=== PATIENT | male | born 1975 | race Two or more races ===

== ENCOUNTER 2024-03-11 23:21 | Emergency (ER) | payer MEDICAID, OTHER ==
[~2024-03-11] VITALS: Ht 185.4 cm; Wt 90.9 kg
--- NOTE | 2024-03-11 23:53 | ED.PDOC ---
Musculoskeletal HPI Comments 48 Year old male came to emergency room via EMS due to left knee pain. Patient appears to be homeless, walking towards the gas station where he tripped and fell badly on his left knee. Patient denies any other injuries. Patient states he has a history of a torn meniscus, but states that he lost his knee brace and crutches due to his daughter's car being repossessed. Chief Complaint: Lower Extremity Time Seen by MD: 23:53 Reviewed Notes: Nurses Notes, Family Program Specialist Notes Allergies: Coded Allergies: NO KNOWN ALLERGIES (Unverified , 03/11/24) Information Source: Patient, Emergency Med Personnel Mode of Arrival: EMS Location: Left Extremity Location: Knee Timing: Hours Prehospital treatment: None Severity: Moderate Able to Move Extremity: Yes Bear Weight: Limited Pain: Moderate Hand Dominance: Right Mechanism: Blunt Trauma Circumstances: Fall Onset of Symptoms: After Trauma Symptoms: Swelling, Pain Associated signs and symptoms: Knee pain (left) Past Medical History PAST MEDICAL HISTORY: Denies Past Medical History (Other): History of left knee meniscus tear Surgical History: Denies all surgeries Family History Family History: Reviewed,noncontributory to illness Social History Smoker: Non-Smoker Alcohol: Denies ETOH Use Drugs: Denies Drug Use Lives In: Home Constitutional: denies: chills, diaphoresis, fatigue, fever, malaise, sweats, weakness, others EENTM: denies: blurred vision, double vision, ear bleeding, ear discharge, ear drainage, ear pain, ear ringing, eye pain, eye redness, hearing loss, mouth pain, mouth swelling, nasal discharge, nose bleeding, nose congestion, nose pain, photophobia, tearing, throat pain, throat swelling, voice changes, others Respiratory: denies: cough, hemoptysis, orthopnea, SOB at rest, shortness of breath, SOB with excertion, stridor, wheezing, others Cardiovascular: denies: chest pain, dizzy spells, diaphoresis, Dyspnea on exer tion, edema, irregular heart beat, left arm pain, lightheadedness, palpitations, PND, syncope, others Gastrointestinal: denies: abdomen distended, abdominal pain, blood streaked bowels, constipated, diarrhea, dysphagia, difficulty swallowing, hematemesis, melena, nausea, poor appetite, poor fluid intake, rectal bleeding, rectal pain, vomiting, others Genitourinary: denies: burning, dysuria, flank pain, frequency, hematuria, incontinence, penile discharge, penile sore, pain, testicle pain, testicle swelling, urgency, others Neurological: denies: dizziness, fainting, headache, left sided numbness, left sided weakness, numbness, paresthesia, pre-existing deficit, right sided numbness, right sided weakness, seizure, speech problems, tingling, tremors, weakness, others Musculoskeletal: reports: joint pain (Left knee); denies: back pain, gout, joint swelling, muscle pain, muscle stiffness, neck pain, others Integumetry: denies: bruises, change in color, change in hair/nails, dryness, laceration, lesions, lumps, rash, wounds, others Allergic/Immunocompromised: denies: Difficulty Healing, Frequent Infections, Hives, Itching, others Hematologic/Lymphatic: denies: anemia, blood clots, easy bleeding, easy bruising, swollen glands, others Endocrine: denies: excessive hunger, excessive sweating, excessive thirst, excessive urination, flushing, intolerance to cold, intolerance to heat, unexplained weight gain, unexplained weight loss, others Psychiatric: denies: anxiety, bipolar disorder, depression, hopeless, panic disorder, schizophrenia, sleepless, suicidal, others Physical Exam General Appearance: Moderate Distress (Moderate distress due to left knee pain concerns.), Normal HEENT: Normal ENT Inspection, Pharynx Normal, TMs Normal Neck: Full Range of Motion, Non-Tender, Normal, Normal Inspection Respiratory: Chest Non-Tender, Lungs Clear, No Accessory Muscle Use, No Respiratory Distress, Normal Breath Sounds Cardiovascular: No Edema, No JVD, No Murmur, No Gallop, Normal Peripheral Pulses, Regular Rate/Rhythm Breast Exam: Deferred Gastrointestinal: No Organomegaly, Non Tender, No Pulsatile Mass, Normal Bowel Sounds, Soft Genitalia: Deferred Pelvic: Deferred Rectal: Deferred Extremities: Other (Diffuse tenderness to palpation throughout the anterior and medial aspect of the left knee. Mild edema noted. No ecchymosis noted. Significant reduced range of motion. Distal neurovascular intact.) Musculoskeletal : Apperance: Normal Neurologic: Alert, No Motor Deficits, Normal Affect, Normal Mood, No Sensory Deficits Cerebellar Function: Normal Reflexes: Normal Skin: Dry, Normal Color, Warm Lymphatic: No Adenopathy Was a procedure done? Was a procedure done?: No Differential Diagnosis EXT Differential Diagnosis: Fracture, Sprain, Dislocation, Strain X-Ray, Labs, Meds, VS Vital Signs Date Time Temp Pulse Resp B/P (MAP) Pulse Ox O2 Delivery O2 Flow Rate FiO2 03/11/24 23:25 97.8 62 18 140/89 (106) 100 XY L KNEE 3V XRAY, INDICATION: Fall/trauma TECHNICAL DATA: Frontal , oblique and lateral views were obtained of the left knee. COMPARISON: None FINDINGS: No fracture is identified. Medial, lateral and patellofemoral compartment joint spaces are maintained. Alignment is anatomic. Soft tissues are within normal limits. No joint effusion is demonstrated. IMPRESSION: No acute fracture or dislocation of the left knee. X-Ray, Labs, Meds, VS Comment All studies performed the ED today were reviewed by me personally. Imaging studies were unremarkable for any acute fractures. Patient sustained a left knee contusion. Advised patient utilize Thaddeus wrap and crutches as needed. Pain medication as needed. Ice therapy as tolerated. Time of 1ST Reevaluation: 00:22 Reevaluation 1ST: Improved Consultation: PCP Patient Education/Counseling: Diagnosis, Treatment Family Education/Counseling: Diagnosis, Treatment, No Family Present Departure 1 Departure Time of Disposition: 00:22 Impression: Primary Impression: Contusion of left knee Disposition: 01 HOME / SELF CARE / HOMELESS Condition: Stable Additional Instructions: Advise utilizing Thaddeus wrap and crutches as long as it aid in the healing process. Pain medication as needed. Ice therapy has been advised. e-Prescriptions Tramadol Hcl (Tramadol Hcl) 50 Mg Tab 50 MG PO Q8HP PRN, #15 TAB Prov: DEMOND HALL PAC 03/12/24 Ibuprofen Micronized (Ibuprofen) 800 Mg Tab 800 MG PO Q8HP PRN, #20 TAB Prov: DEMOND HALL PAC 03/12/24 Discharged With: Self Critical Care Note Critical Care Time?: No Stability Stability form required: No Heart Score Heart Score: Heart Score Response (Comments) Value History N/A 0 EKG N/A 0 Age N/A 0 Risk Factors N/A 0 Troponin N/A 0 Total 0 I personally scribed for DEMOND HALL PAC ([email or web address]) on 03/11/24 at 23:53. Electronically submitted by Evans Moncada ([email or web address]). I personally scribed for DEMOND HALL PAC ([email or web address]) on 03/12/24 at 00:17. Electronically submitted by Evans Moncada ([email or web address]). DEMOND HALL PAC Mar 11, 2024 23:53
--- NOTE | 2024-03-11 23:57 | DVH ---
XY L KNEE 3V XRAY, INDICATION: Fall/trauma TECHNICAL DATA: Frontal , oblique and lateral views were obtained of the left knee. COMPARISON: None FINDINGS: No fracture is identified. Medial, lateral and patellofemoral compartment joint spaces are maintained . Alignment is anatomic. Soft tissues are within normal limits. No joint effusion is demonstrated. IMPRESSION: No acute fracture or dislocation of the left knee.
[2024-03-12] MEDS ORDERED: IBUP-1455 PO (00:23)
[2024-03-12] MEDS ORDERED: TRAM50TA2 PO (00:23)
[2024-03-12] MEDS: HYDROcodone-ACET 5/325MG TAB PO ONE (01:06)
[2024-03-12] MEDS: KETOROLAC TROMETH 60MG/2ML VIAL IM ONE (01:09)
[2024-03-12 01:12] VITALS: BP 148/71; PULSE 73; RESP 17; TEMP 97.9; O2SAT 100
== END 2024-03-12 01:32 | disposition home or self-care (01) ==
LOC: ER 23:21
DX: S80.02XA Contusion of left knee, initial encounter (principal); W01.0XXA Fall on same level from slipping, tripping and stumbling without subsequent striking against object, initial encounter; Y93.89 Activity, other specified; Y92.89 Other specified places as the place of occurrence of the external cause; Y99.8 Other external cause status
CPT/HCPCS: 73562; 96372; 99283; J1885